=== PATIENT | female | born 1965 | race Caucasian/White ===

== ENCOUNTER → 2017-02-12 | Outpatient (CLI) | payer BC ==
--- NOTE | 2017-02-12 15:38 | US ---
EXAMINATION TYPE: US transvaginal DATE OF EXAM: 02/12/2017 2:54 PM COMPARISON: US, CT CLINICAL HISTORY: R10.9 Abdominal Pain R10.2 Pelvic Pain. Severe Left pelvic pain radiating to back; LMP 2 months prior; TECHNIQUE: Transvaginal (TV) US provided as patient was in pain and unable to tolerate full bladder; bladder was assessed as well; prior Date of LMP: 2 months ago EXAM MEASUREMENTS: Uterus: 7.7 x 4.2 x 3.5 cm Endometrial Stripe: 0.6 cm Right Ovary: 3.1 x2.8 x 1.8 cm Left Ovary: 4.7 x 4.8 x 3.8 cm 1. Uterus: Anteverted 2. Endometrium: thin, and unable to correlate with LMP 2 months prior as patient stated she stopped having menses after daughter was delivered 3. Right Ovary: multifollicular; hyperechoic focus at periphery could reflect calcified vessel haywood 4. Left Ovary: enlarged with small amount of normal ovarian tissue noted on image #[id number] surrounded by large solid lesion = 3.8 x 3.6 x 2.8cm Spectral, color and waveform Doppler imaging shows good arterial and venous flow within the ovaries ; there is no evidence for ovarian torsion. 5. Bilateral Adnexa: small amount of free fluid posterior to right ovary and moderate amount noted a t lateral left ovary 6. Posterior cul-de-sac: wnl 7. Bladder: bilateral ureteral jets were seen; prominent ureteral openings into bladder noted at post erior bladder wall. Tech findings called to KWESI Sanchez, at exam's end. JJ IMPRESSION: 1. Possible solid lesion left ovary. Additional workup is recommended. 2. Moderate free fluid within the pelvis
--- NOTE | 2017-02-12 15:40 | US ---
EXAMINATION TYPE: US abdomen complete DATE OF EXAM: 02/12/2017 2:41 PM COMPARISON: CT 2009 CLINICAL HISTORY: R10.9 Abdominal Pain R10.2 Pelvic Pain. HX of ovarian cysts / see Pelvic US today. EXAM MEASUREMENTS: Liver Length: 15.8 cm Gallbladder Wall: 0.2 cm CBD: 0.3 cm Spleen: 9.5 cm Right Kidney: 10.0 x 5.8 x 5.1 cm Left Kidney: 10.6 x 6.5 x 4.5 cm Pancreas: wnl Liver: wnl Gallbladder: wnl Evidence for sonographic Izaguirre's sign: No CBD: wnl Spleen: wnl Right Kidney: wnl Left Kidney: wnl Upper IVC: wnl Abd Aorta: wnl IMPRESSION: 1. Normal abdomen ultrasound
== END | disposition home or self-care (01) ==
LOC: RADUSWWP 13:00
PROVIDERS: ATTEND Family Medicine
DX: R10.9 Unspecified abdominal pain (principal); R10.2 Pelvic and perineal pain
CPT/HCPCS: 76700; 76830

== ENCOUNTER → 2018-09-30 | Outpatient (CLI) | payer BC ==
--- NOTE | 2018-10-01 09:14 | CT ---
EXAMINATION TYPE: CT abdomen pelvis wo con DATE OF EXAM: 09/30/2018 COMPARISON: Pelvic ultrasound dated 02/12/2017 HISTORY: Pelvic pain. CT DLP: 224.2 mGycm Automated exposure control for dose reduction was used. TECHNIQUE: Helical acquisition of images was performed from the lung bases through the pelvis. FINDINGS: LUNG BASES: Lung bases are unremarkable. Bilateral breast implants are noted that are partially visua lized. LIVER/GB: The unenhanced liver is homogeneous but elongated extending past the iliac crest measuring 18.4 cm in craniocaudal dimension. PANCREAS: Pancreas demonstrates no evidence of ductal dilatation. SPLEEN: Unremarkable ADRENALS: No significant abnormality is seen. KIDNEYS: No hydronephrosis or nephrolithiasis. FREE AIR: No free air is visualized ADENOPATHY: There is a 1.0 cm periumbilical lymph node just below the umbilicus on sagittal series 7 image 51. Given its location this is somewhat suspicious. This is contained within a very small manjinder umbilical hernia. REPRODUCTIVE ORGANS: Uterus appears surgically absent. What is thought to be the right ovary is sligh tly prominent but is similar to adjacent bowel measuring approximately 2.5 cm. URINARY BLADDER: Decompressed OSSEOUS STRUCTURES: Mild degenerative disease at L5-S1. BOWEL: Bowel is suboptimally evaluated without contrast. Slight gastric wall thickening likely relat es to incomplete distention. Moderate amount retained colonic stool is seen further limiting evaluati on of the bowel. No dilated large or small bowel is seen. IMPRESSION: SOLITARY 1 CM PERIUMBILICAL LYMPH NODE. THIS IS AN ABNORMAL LOCATION FOR A LYMPH NODE FURTHER INVE STIGATION IS WARRANTED. CONSIDERATION COULD BE GIVEN TO PET CT FOR FINE-NEEDLE ASPIRATION IN LIGHT OF THE PROXIMAL SOLID LEFT OVARIAN LESION SEEN ON THE PRIOR PELVIC ULTRASOUND OF 2017.
== END | disposition home or self-care (01) ==
LOC: RADCTMAIN 15:23
PROVIDERS: ATTEND Family Medicine
DX: R10.9 Unspecified abdominal pain (principal)
CPT/HCPCS: 74176

== ENCOUNTER 2018-10-21 11:14 | Day surgery (SDC) | payer BC ==
[2018-10-15 15:23] VITALS: BMI 18.7
[~2018-10-21 11:14] MED LIST: DEXAMETHASONE SOD PHOSPHATE 10 MG/ML 1 ML VIAL IV ONE; HYDROmorphone 0.5 MG/0.5 ML SYRINGE IVP PRN; LACTATED RINGERS 1,000 ML IV SCH; LIDOCAINE 1% 20 ML VIAL (10MG/ML) FOR IV START INTRADERMA PRN; ONDANSETRON 4 MG/2 ML VIAL IVP ONE; SCOPOLAMINE 1.5MG/72HR PATCH TRANSDERM ONE
[2018-10-21 11:36] VITALS: TEMP 98.1
[2018-10-21] MEDS ORDERED: fentaNYL (PF) 50 MCG/ML 2 ML AMP IV ONE (11:45)
[2018-10-21] MEDS ORDERED: LIDOCAINE 1% INJ 10MG/ML (20 ML MDV) ONE (11:58)
[2018-10-21] MEDS ORDERED: PROPOFOL 10 MG/ML 20 ML VIAL IV ONE (11:58)
[2018-10-21] MEDS ORDERED: fentaNYL (PF) 50 MCG/ML 2 ML AMP ONE (11:58)
--- NOTE | 2018-10-21 12:57 | P.PCN ---
Date of Procedure: 10/21/18 Description of Procedure: BRIEF HISTORY: Patient is a pleasant 52-year-old female who presents for outpatient screening colonoscopy. The patient believes she has not had a colonoscopy in the past. She reports that in the recent past she had 2 episodes with blood noted per rectum. She denies any loose bowel movements but has had some lower abdominal pain. She does have a half-brother who was diagnosed with colon cancer, but reports that they do not share the same father. PROCEDURE PERFORMED: Colonoscopy with polypectomy and clip placement. PREOPERATIVE DIAGNOSIS: Screening colonoscopy (patient's first colonoscopy), abdominal pain, family history of colon cancer. ESTIMATED BLOOD LOSS: Minimal. IV sedation per Anesthesia. PROCEDURE: After informed consent was obtained, the patient, was brought into the endoscopy unit. IV sedation was administered by Anesthesia under continuous monitoring. Digital rectal examination was normal. Initially the Olympus CF- 190 flexible video colonoscope was then inserted in the rectum, gradually advanced into the cecum without any difficulty. Careful examination was performed as the scope was gradually being withdrawn. Ileocecal valve and the appendiceal orifice were visualized and appeared normal. Prep was excellent in the transverse and left colon, however prep was fair to poor in the right colon. Copious lavage was attempted however liquid stool remained adherent to the haywood of the colon. Mucosa of the cecum, ascending colon, transverse colon, descending colon, sigmoid colon, and rectum appeared grossly normal. 3 polyps were removed in the sigmoid colon. One small 4 mm sessile polyp by cold forcep polypectomy. A 11 mm pedunculated polyp with hot snare polypectomy with Endo Clip placement for hemostasis. A 9 mm pedunculated polyp with cold snare polypectomy. Mild scattered diverticulosis in the sigmoid and descending colon was also noted. Retroflexion was performed in the rectum and no lesions were seen, however moderate internal hemorrhoids were noted. The patient tolerated the procedure well. IMPRESSION: internal hemorrhoids. Sigmoid and descending colon diverticulosis. 3 sigmoid polyps with Endo Clip placement after hot snare polypectomy of one of the polyps. RECOMMENDATIONS: Findings of this examination were discussed with the patient and her . Okay to resume high-fiber diet. Await pathology from polypectomy. Recommend repeat colonoscopy in one year given fair to poor prep in the right colon.
[2018-10-21 13:21] VITALS: BP 100/67; PULSE 78; RESP 18
== END 2018-10-21 13:46 | disposition home or self-care (01) ==
LOC: ORWHC2ENDO 11:14
PROVIDERS: ATTEND Internal Medicine
DX: K63.5 Polyp of colon (principal); K57.30 Diverticulosis of large intestine without perforation or abscess without bleeding; K64.8 Other hemorrhoids; Z80.0 Family history of malignant neoplasm of digestive organs; Z88.0 Allergy status to penicillin; Z88.2 Allergy status to sulfonamides; F17.210 Nicotine dependence, cigarettes, uncomplicated; G43.909 Migraine, unspecified, not intractable, without status migrainosus
CPT/HCPCS: 88305; 45380; 45385; J2405; J2001; J3010; J2704; 45382

== ENCOUNTER 2018-11-02 17:51 | Emergency (ER) | payer BC ==
[2018-11-02 18:04] VITALS: TEMP 98
[2018-11-02] MEDS ORDERED: ONDANSETRON 4 MG/2 ML VIAL IVP STA (18:34)
[2018-11-02] MEDS ORDERED: SODIUM CHLORIDE 0.9% 500 ML 500 ML IV STA (18:34)
[2018-11-02] MEDS ORDERED: HYDROmorphone 0.5 MG/0.5 ML SYRINGE IVP STA (18:34)
--- NOTE | 2018-11-02 18:53 | ED ---
General Adult HPI - General Source: patient, RN notes reviewed Mode of arrival: ambulatory Limitations: no limitations <Carlitos Muñoz - Last Filed: 11/06/18 10:27> <Paul Myles - Last Filed: 11/11/18 07:01> - General Chief complaint: Abdominal Pain Stated complaint: Abd pain Time Seen by Provider: 11/02/18 18:00 - History of Present Illness Initial comments: This a 53-year-old female who comes in complaining of abdominal pain most of the left side. Patient states she had a colonoscopy about 11 days ago. Patient states the pain started coming on yesterday and got worse today. Patient states even walking is now hurting the abdomen. Patient denies any nausea vomiting or diarrhea. Patient denies any fever chills. Patient states she's had an oophorectomy on the left side. Patient states pain is similar to that but is on the wrong side. Patient denies any back pain. Patient denies any injury or trauma. Patient denies any chest pain difficulty breathing shortest breath. Patient states she has a small umbilical hernia. Surgeon is seen her for the umbilical hernia and determined there is nothing to do at this time. (Carlitos Muñoz) - Related Data Home Medications Medication Instructions Recorded Confirmed No Known Home Medications 11/02/18 11/02/18 Allergies Allergy/AdvReac Type Severity Reaction Status Date / Time Penicillins Allergy Anaphylaxis Verified 11/02/18 18:37 sulfamethoxazole Allergy Rash/Hives Verified 11/02/18 18:37 [From Bactrim] trimethoprim [From Bactrim] Allergy Rash/Hives Verified 11/02/18 18:37 Review of Systems ROS Other: All systems not noted in ROS Statement are negative. <Carlitos Muñoz - Last Filed: 11/06/18 10:27> ROS Other: All systems not noted in ROS Statement are negative. <Paul Myles - Last Filed: 11/11/18 07:01> ROS Statement: Those systems with pertinent positive or pertinent negative responses have been documented in the HPI. Past Medical History Additional Past Medical History / Comment(s): constipation recently, hx. anemia , states has lymph node above belly button where normally there is none, ovarian cysts History of Any Multi-Drug Resistant Organisms: None Reported Additional Past Surgical History / Comment(s): left oophorectomy Past Anesthesia/Blood Transfusion Reactions: Postoperative Nausea & Vomiting ( PONV) Past Psychological History: No Psychological Hx Reported Smoking Status: Current every day smoker Past Alcohol Use History: None Reported Past Drug Use History: None Reported - Past Family History Mother Family Medical History: No Reported History <Carlitos Muñoz - Last Filed: 11/06/18 10:27> General Exam Limitations: no limitations <Carlitos Muñoz - Last Filed: 11/06/18 10:27> <Paul Myles - Last Filed: 11/11/18 07:01> - General Exam Comments Initial Comments: GENERAL: Patient is well-developed and well-nourished. Patient is nontoxic and well- hydrated and is in mild distress. ENT: Neck is soft and supple. No significant lymphadenopathy is noted. Oropharynx is clear. Moist mucous membranes. Neck has full range of motion without eliciting any pain. EYES: The sclera were anicteric and conjunctiva were pink and moist. Extraocular movements were intact and pupils were equal round and reactive to light. Eyelids were unremarkable. PULMONARY: Unlabored respirations. Good breath sounds bilaterally. No audible rales rhonchi or wheezing was noted. CARDIOVASCULAR: There is a regular rate and rhythm without any murmurs gallops or rubs. ABDOMEN: Patient has tenderness in the left lower quadrant and does have some rebound tenderness. SKIN: Skin is clear with no lesions or rashes and otherwise unremarkable. NEUROLOGIC: Patient is alert and oriented x3. Cranial nerves II through XII are grossly intact. Motor and sensory are also intact. Normal speech, volume and content. Symmetrical smile. MUSCULOSKELETAL: Normal extremities with adequate strength and full range of motion. No lower extremity swelling or edema. No calf tenderness. LYMPHATICS: No significant lymphadenopathy is noted PSYCHIATRIC: Normal psychiatric evaluation. (Carlitos Muñoz) Vital Signs 11/02/18 11/02/18 11/02/18 18:01 20:56 21:00 Temperature 98.0 F Pulse Rate 78 82 Respiratory 18 18 Rate Blood Pressure 120/78 108/60 O2 Sat by Pulse 100 97 97 Oximetry 11/02/18 22:00 Temperature Pulse Rate 81 Respiratory 16 Rate Blood Pressure 115/68 O2 Sat by Pulse 97 Oximetry Medical Decision Making - Lab Data Result diagrams: 11/02/18 18:55 11/02/18 18:55 <Carlitos Muñoz - Last Filed: 11/06/18 10:27> - Lab Data Result diagrams: 11/02/18 18:55 11/02/18 18:55 <Paul Myles - Last Filed: 11/11/18 07:01> - Medical Decision Making Patient initially refused the CAT scan and eventually decided to have the CAT scan done. Dr. Cartwright will be taking over the care of this patient at 9 PM (Carlitos Muñoz) I receive this patient has a sign out pending the results of the CAT scan. She is found to have diverticulitis. I discussed course of outpatient antibiotics versus patient staying in the hospital. She was feeling a bit better with analgesics and antibiotics and elected to go home. We discussed appropriate follow-up and also return parameters. (Paul Myles) - Lab Data Lab Results 11/02/18 11/02/18 11/02/18 Range/Units 18:55 18:55 20:20 WBC 11.3 H (3.8-10.6) k/uL RBC 4.42 (3.80-5.40) m/uL Hgb 14.8 (11.4-16.0) gm/dL Hct 43.6 (34.0-46.0) % MCV 98.6 (80.0-100.0) fL MCH 33.4 (25.0-35.0) pg MCHC 33.9 (31.0-37.0) g/dL RDW 11.8 (11.5-15.5) % Plt Count 239 (150-450) k/uL Neutrophils % 73 % Lymphocytes % 18 % Monocytes % 6 % Eosinophils % 2 % Basophils % 0 % Neutrophils # 8.2 H (1.3-7.7) k/uL Lymphocytes # 2.1 (1.0-4.8) k/uL Monocytes # 0.6 (0-1.0) k/uL Eosinophils # 0.2 (0-0.7) k/uL Basophils # 0.0 (0-0.2) k/uL Sodium 141 (137-145) mmol/L Potassium 4.2 (3.5-5.1) mmol/L Chloride 107 (98-107) mmol/L Carbon Dioxide 25 (22-30) mmol/L Anion Gap 9 mmol/L BUN 18 H (7-17) mg/dL Creatinine 0.45 L (0.52-1.04) mg/dL Est GFR (CKD-EPI)AfAm >90 (>60 ml/min/1.73 sqM) Est GFR (CKD-EPI)NonAf >90 (>60 ml/min/1.73 sqM) Glucose 80 (74-99) mg/dL Calcium 10.1 (8.4-10.2) mg/dL Total Bilirubin 0.9 (0.2-1.3) mg/dL AST 19 (14-36) U/L ALT 23 (9-52) U/L Alkaline Phosphatase 55 (38-126) U/L Total Protein 7.4 (6.3-8.2) g/dL Albumin 4.8 (3.5-5.0) g/dL Amylase 47 (30-110) U/L Lipase 70 (23-300) U/L Urine Color Yellow Urine Appearance Clear (Clear) Urine pH 5.5 (5.0-8.0) Ur Specific [place] 1.026 (1.001-1.035) Urine Protein Trace H (Negative) Urine Glucose (UA) Negative (Negative) Urine Ketones 1+ H (Negative) Urine Blood Negative (Negative) Urine Nitrite Negative (Negative) Urine Bilirubin Negative (Negative) Urine Urobilinogen <2.0 (<2.0) mg/dL Ur Leukocyte Esterase Moderate H (Negative) Urine RBC 1 (0-5) /hpf Urine WBC 5 (0-5) /hpf Ur Squamous Epith Cells 1 (0-4) /hpf Urine Mucus Many H (None) /hpf Disposition <Carlitos Muñoz - Last Filed: 11/06/18 10:27> Is patient prescribed a controlled substance at d/c from ED?: Yes When asked, does pt state using other controlled substances?: No If prescribed controlled substance>3 days was MAPS reviewed?: Prescribed <3 Days If opioid is for acute pain is fill amount 7 days or less?: Yes If Rx opioid, was Start Talking consent form obtained?: Yes <Paul Myles - Last Filed: 11/11/18 07:01> Clinical Impression: Diverticulitis Disposition: HOME SELF-CARE Condition: Fair Instructions: Diverticulitis (ED) Referrals: Brendon Roper MD [Primary Care Provider] - 1-2 days
[2018-11-02 19:12] LABS: Basophils % (A) 0 %; Eosinophils # (A) 0.2 k/uL (0-0.7); Eosinophils % (A) 2 %; HCT 43.6 % (34.0-46.0); HGB 14.8 gm/dL (11.4-16.0); Lymphocytes # (A) 2.1 k/uL (1.0-4.8); Lymphocytes % (A) 18 %; MCH 33.4 pg (25.0-35.0); MCHC 33.9 g/dL (31.0-37.0); MCV 98.6 fL (80.0-100.0); Mean Platelet Volume 7.8; Monocytes # (A) 0.6 k/uL (0-1.0); Monocytes % (A) 6 %; Neutrophils # (A) 8.2 k/uL (1.3-7.7); Neutrophils % (A) 73 %; Platelet Count 239 k/uL (150-450); RBC 4.42 m/uL (3.80-5.40); RDW 11.8 % (11.5-15.5); WBC 11.3 k/uL (3.8-10.6)
[2018-11-02 19:27] LABS: ALT 23 U/L (9-52); AST 19 U/L (14-36); Albumin 4.8 g/dL (3.5-5.0); Alkaline Phosphatase 55 U/L (38-126); Amylase 47 U/L (30-110); Anion Gap 9 mmol/L; Blood Urea Nitrogen 18 mg/dL (7-17); Calcium 10.1 mg/dL (8.4-10.2); Carbon Dioxide 25 mmol/L (22-30); Chloride 107 mmol/L (98-107); Glucose 80 mg/dL (74-99); Lipase 70 U/L (23-300); Potassium 4.2 mmol/L (3.5-5.1); Sodium 141 mmol/L (137-145); Total Bilirubin 0.9 mg/dL (0.2-1.3); Total Protein 7.4 g/dL (6.3-8.2)
[2018-11-02 21:00] LABS: Appearance,Urine Clear (Clear); Bilirubin,Urine Negative (Negative); Blood,Urine Negative (Negative); Color,Urine Yellow; Glucose,Urine (UA) Negative (Negative); Ketones,Urine 1+ (Negative); Leukocyte Esterase,Urine Moderate (Negative); Mucus,Urine Many /hpf; Nitrite,Urine Negative (Negative); PH, Urine 5.5 (5.0-8.0); Protein,Urine Trace (Negative); RBC,Urine 1 /hpf (0-5); Specific Gravity,Urine 1.026 (1.001-1.035); Squamous Epithelial Cell,Urine 1 /hpf (0-4); Urobilinogen,Urine <2.0 mg/dL (<2.0); WBC,Urine 5 /hpf (0-5)
[2018-11-02] MEDS ORDERED: MORPHINE SULFATE 4 MG/ML SYRINGE IV STA (21:13)
--- NOTE | 2018-11-02 21:14 | CT ---
EXAMINATION TYPE: CT abdomen pelvis w con DATE OF EXAM: 11/02/2018 COMPARISON: 09/30/2018 HISTORY: abdominal pain CT DLP: 474.6 mGycm Automated exposure control for dose reduction was used. TECHNIQUE: Helical acquisition of images was performed from the lung bases through the pelvis. CONTRAST: Performed without Oral Contrast and with IV Contrast, patient injected with 100 mL of Isovue 300. FINDINGS: LUNG BASES: No significant abnormality is appreciated. LIVER/GB: No significant abnormality is appreciated. PANCREAS: No significant abnormality is seen. SPLEEN: No significant abnormality is seen. ADRENALS: No significant abnormality is seen. KIDNEYS: No significant abnormality is seen. PERITONEAL CAVITY: No free air or abnormal fluid collections. RETROPERITONEAL ADENOPATHY: None visualized REPRODUCTIVE ORGANS: Prominent bilateral adnexal varices are incidentally noted, somewhat greater on the left. URINARY BLADDER: No significant abnormality is seen. PELVIC ADENOPATHY: None visualized. OSSEOUS STRUCTURES: No significant abnormality is seen. BOWEL: The sigmoid colon shows indistinctness and circumferential mural thickening with diverticula; findings consistent with moderate diverticulitis. OTHER: Vasculature is negative. IMPRESSION: MODERATE-DEGREE SIGMOID DIVERTICULITIS.
[2018-11-02 22:27] VITALS: BP 115/68; PULSE 81; RESP 16
[2018-11-02] MEDS ORDERED: LEVOFLOXACIN 750 MG TAB ONE (23:45)
[2018-11-02] MEDS ORDERED: traMADol 50 MG STARTER PACK 3 TAB BTL ONE (23:45)
[2018-11-02] MEDS ORDERED: metroNIDAZOLE 500 MG TAB ONE (23:45)
--- NOTE | 2018-11-05 05:25 | CDI ---
Documentation Clarification OP Dear Dr. Carlitos Muñoz Please provide clinical impression. Thank you, [place] [employer] Traffic Officer If you have any questions, please contact [employer] at [phone] [facility]
== END 2018-11-03 01:30 | disposition home or self-care (01) ==
LOC: EC 17:51
DX: K57.92 Diverticulitis of intestine, part unspecified, without perforation or abscess without bleeding (principal); F17.200 Nicotine dependence, unspecified, uncomplicated; Z87.19 Personal history of other diseases of the digestive system; Z87.42 Personal history of other diseases of the female genital tract; Z90.721 Acquired absence of ovaries, unilateral; Z88.0 Allergy status to penicillin; Z88.2 Allergy status to sulfonamides
CPT/HCPCS: 99284; 96374; 96375 ×2; 96376; 36415; 80053; 82150; 83690; 85025; 81001; 74177; J2270; J2405; J1170; Q9967

== ENCOUNTER → 2021-10-08 | Outpatient (CLI) | payer BC ==
--- NOTE | 2021-10-08 13:34 | US ---
EXAMINATION TYPE: US abdomen complete DATE OF EXAM: 10/08/2021 COMPARISON: US abdomen 2017 CLINICAL HISTORY: 55-year-old female R10.31 Epigastric pain. TECHNIQUE: Multiple sonographic images of the abdomen are obtained. FINDINGS: EXAM MEASUREMENTS: Liver Length: 15.4 cm Gallbladder Wall: 0.23 cm CBD: CBD not well seen in a longitudinal plane due to positioning; measured in a transverse plane at the pancreatic head at 2 mm. Spleen: 9.0 x 3.1 cm Right Kidney: 10.0 x 4.6 x 5.2 cm Left Kidney: 10.6 x 6.0 x 5.1 cm Pancreas: wnl Liver: wnl Gallbladder: wnl Evidence for sonographic Izaguirre's sign: No CBD: CBD not well seen in a longitudinal plane due to positioning; measured in a transverse plane at the pancreatic head measuring 2 mm. Spleen: Wnl Right Kidney: wnl Left Kidney: wnl Upper IVC: wnl Abd Aorta: wnl IMPRESSION: Limited assessment of the bile duct. The lower common bile duct on transverse images is estimated at 2 mm which is normal. Otherwise, no specific abnormality seen.
== END | disposition home or self-care (01) ==
LOC: RADUSWWP 11:47
PROVIDERS: ATTEND Family Medicine
DX: R10.13 Epigastric pain (principal)
CPT/HCPCS: 76700